=== PATIENT | female | born 1990 | race Caucasian/White ===

== ENCOUNTER 2022-02-16 19:42 | Emergency (ER) | payer OTHER ==
[~2022-02-16] VITALS: Ht 157.5 cm; Wt 104.3 kg
--- NOTE | ~2022-02-16 | EKG ---
[facility] [address] [facility] [place], [place] [address] Draft EK completed, results pending confirmation PATIENT NAME: KIMBERLY ROSSI Electrocardiogram DATE OF : 89 PHYSICIAN: PRELIMINARY REPORT #: [id number] REPORT IS CONFIDENTIAL AND NOT TO BE RELEASED WITHOUT AUTHORIZATION
[~2022-02-16 19:42] MED LIST: PRENATA CHEWAB1 EACH PO; REGLAN10 MG PO
[2022-02-16] MEDS ORDERED: MECLIZINE HCL25 MG PO (23:19)
== END 2022-02-16 23:42 | disposition home or self-care (01) ==
LOC: ED 19:42
DX: H81.391 Other peripheral vertigo, right ear (principal); F17.200 Nicotine dependence, unspecified, uncomplicated; Z88.5 Allergy status to narcotic agent
CPT/HCPCS: 36415; 80053; 81001; 83735; 84703; 85025; 93005; 93010; 96360; 99284-25; A9270; J7030

== ENCOUNTER 2022-09-17 10:22 | Emergency (ER) | payer OTHER ==
[~2022-09-17] VITALS: Ht 157.5 cm; Wt 101.9 kg
[~2022-09-17 10:22] MED LIST changes: +MECLIZINE HCL25 MG PO
[2022-09-17] MEDS ORDERED: ONDANSETRON ODT4 MG PO (10:42)
== END 2022-09-17 14:00 | disposition home or self-care (01) ==
LOC: ED 10:22
DX: K52.9 Noninfective gastroenteritis and colitis, unspecified (principal); F17.200 Nicotine dependence, unspecified, uncomplicated; Z88.5 Allergy status to narcotic agent; Z79.899 Other long term (current) drug therapy
CPT/HCPCS: 36415; 80053; 81001; 83735; 84703; 85025; 96374; 99284-25; J2405; J7030

== ENCOUNTER 2023-03-30 13:42 | Emergency (ER) | payer OTHER ==
[~2023-03-30] VITALS: Ht 157.5 cm; Wt 107.9 kg
[~2023-03-30 13:42] MED LIST changes: +ONDANSETRON ODT4 MG PO
[2023-03-30] MEDS ORDERED: IMITREX50 MG PO (17:35)
[2023-03-30 17:54] VITALS: BP 120/93
== END 2023-03-30 17:55 | disposition home or self-care (01) ==
LOC: ED 13:42
DX: G43.109 Migraine with aura, not intractable, without status migrainosus (principal); F17.200 Nicotine dependence, unspecified, uncomplicated; Z88.5 Allergy status to narcotic agent; Z79.899 Other long term (current) drug therapy
CPT/HCPCS: 70450; 96372; 99283-25; J3030

== ENCOUNTER 2024-01-06 11:15 | Emergency (ER) | payer OTHER ==
[~2024-01-06] VITALS: Ht 157.5 cm; Wt 106.9 kg
[~2024-01-06 11:15] MED LIST changes: +IMITREX50 MG PO
[2024-01-06] MEDS ORDERED: CEPHALEXIN500 MG PO (12:43)
[2024-01-06] MEDS ORDERED: CYCLOBENZAPRINE10 MG PO (12:43)
[2024-01-06 13:37] LABS: HEMOGLOBIN 15.2 g/dL (12.0-18.0)
[2024-01-06 13:40] LABS: BASOPHILS 0.8 % (0-2); EOSINOPHILS 2.9 % (0-6); HEMATOCRIT 45.3 % (35.0-50.0); LYMPHOCYTES 29.9 % (24-44); MCH 31.1 (27-36); MCHC 33.5 g/dl (30-36); MCV 92.7 fl (81-99); MONOCYTES 6.6 % (0-12); NEUTROPHILS 59.8 % (39-80); PLATELET COUNT 244 K/uL (140-440); RBC 4.89 M/ul (4.3-5.7); RDW 13.9 (10.5-15.0)
[2024-01-06 13:51] LABS: ALBUMIN 3.7 g/dL (3.4-5.0); ANION GAP 11.5 (7-21); BILIRUBIN, TOTAL 0.6 ng/dL (0.2-1.0); BUN/CREATININE RATIO 10.86 (6.0-28.6); CALCIUM 8.9 mg/dL (8.5-10.1); CREATININE, SERUM 0.92 mg/dL (0.55-1.02); POTASSIUM 4.5 mmol/L (3.5-5.1); PROTEIN, TOTAL 7.4 g/dL (6.4-8.2)
[2024-01-06 15:03] LABS: BILIRUBIN, URINE NEGATIVE (negative); BLOOD/HGB, URINE NEGATIVE (Negative); KETONE, URINE NEGATIVE (Negative); LEUK ESTERASE, URINE NEGATIVE (negative); NITRITE, URINE NEGATIVE (negative)
[2024-01-06 16:19] VITALS: BP 100/55
== END 2024-01-06 16:20 | disposition home or self-care (01) ==
LOC: ED 11:15
PROVIDERS: Emergency Medicine
DX: R10.12 Left upper quadrant pain (principal); F17.200 Nicotine dependence, unspecified, uncomplicated; Z88.5 Allergy status to narcotic agent; Z79.899 Other long term (current) drug therapy; Z97.5 Presence of (intrauterine) contraceptive device
CPT/HCPCS: 36415; 80053; 81003; 83690; 84703; 85025; 99284

== ENCOUNTER 2024-06-17 11:14 | Emergency (ER) | payer OTHER ==
[~2024-06-17] VITALS: Ht 157.5 cm; Wt 108.0 kg
[~2024-06-17 11:14] MED LIST changes: +CEPHALEXIN500 MG PO; +CYCLOBENZAPRINE10 MG PO
[2024-06-17 12:12] LABS: BASOPHILS 0.5 % (0-2); EOSINOPHILS 0.8 % (0-6); HEMATOCRIT 45.5 % (35.0-50.0); HEMOGLOBIN 15.5 g/dL (12.0-18.0); LYMPHOCYTES 22.4 % (24-44); MCH 31.3 (27-36); MCHC 34.1 g/dl (30-36); MCV 91.6 fl (81-99); NEUTROPHILS 71.3 % (39-80); PLATELET COUNT 285 K/uL (140-440); RBC 4.96 M/ul (4.3-5.7); RDW 13.3 (10.5-15.0)
[2024-06-17] MEDS ORDERED: SODIUM CHLORIDE 0.9% 500 ML IV PRN (12:15)
[2024-06-17 12:18] LABS: INR 0.97 (0.80-1.30); PROTIME 12.8 Sec (11.2-14.2)
[2024-06-17 12:20] LABS: PARTIAL THROMBOPLASTIN TIME 32.8 Sec (22.9-41.3)
[2024-06-17 12:24] LABS: ALBUMIN 3.8 g/dL (3.4-5.0); ALBUMIN/GLOBULIN RATIO 0.97 (1.1-2.4); ANION GAP 12.4 (7-21); BILIRUBIN, TOTAL 0.3 ng/dL (0.2-1.0); BUN/CREATININE RATIO 15.21 (6.0-28.6); CALCIUM 8.5 mg/dL (8.5-10.1); CREATININE, SERUM 0.92 mg/dL (0.55-1.02); POTASSIUM 3.4 mmol/L (3.5-5.1); PROTEIN, TOTAL 7.7 g/dL (6.4-8.2)
[2024-06-17 12:42] LABS: ABO A
[2024-06-17 12:43] LABS: ANTIBODY SCREEN NEGATIVE; RH POSITIVE
[2024-06-17 15:39] VITALS: BP 106/63
== END 2024-06-17 15:42 | disposition home or self-care (01) ==
LOC: ED 11:14
PROVIDERS: Emergency Medicine
DX: K62.5 Hemorrhage of anus and rectum (principal); F17.200 Nicotine dependence, unspecified, uncomplicated; Z88.5 Allergy status to narcotic agent
CPT/HCPCS: 36415; 74177; 80053; 84703; 85025; 85610; 85730; 86850; 86900; 86901; 99284-25; Q9967